=== PATIENT | male | born 1970 | race Hispanic/Latino ===

== ENCOUNTER → 2019-04-13 | Outpatient (CLI) | payer OTHER ==
--- NOTE | 2019-04-13 16:35 | Diagnostic Imaging Report ---
TECHNIQUE: Magnetic resonance imaging of the RIGHT HAND was performed WITHOUT injected contrast. HISTORY: Right hand pain, sprain of the metacarpal joint COMPARISON: None. FINDINGS: No acute fracture. Cystic change in the ulnar side of the lunate. The remainder of the bone marrow signal is normal. The flexor and extensor tendons are intact. Thickening and intermediate signal involving the joint capsule of the thumb MP joint. No discrete radial or ulnar collateral ligament tear. No fluid collections or masses. IMPRESSION: Probable prior sprain of the MP joint of the thumb. No visualized acute tear. Signed by: Dr. Rad Barrios M.D. on 04/13/2019 4:32 PM
== END ==
LOC: MRI 15:25
PROVIDERS: ATTEND Specialist
DX: S63.641D Sprain of metacarpophalangeal joint of right thumb, subsequent encounter (principal)